=== PATIENT | female | born 1980 | race Caucasian/White ===

== ENCOUNTER 2017-05-31 02:16 | Inpatient (IN) | payer MEDICAID ==
[~2017-05-31] VITALS: Ht 160 cm; Wt 80.0 kg
[2017-05-31] MEDS ORDERED: LACTATED RINGER'S 1,000 ML IV SCH (03:11)
[2017-05-31] MEDS ORDERED: OXYTOCIN 30 UNITS/LR 500 ML IV PRN ×2 (03:30→11:00)
[2017-05-31] MEDS ORDERED: BUTORPHANOL 2 MG INJ IV PRN (03:30)
[2017-05-31] MEDS ORDERED: CARBOPROST 250 MCG INJ IM PRN ×2 (03:30→11:00)
[2017-05-31] MEDS ORDERED: LIDOCAINE 1% (MPF) 30 ML INJ INJ PRN (03:30)
[2017-05-31] MEDS ORDERED: OXYTOCIN 30 UNITS/LR 500 ML IV SCH ×2 (03:30)
[2017-05-31] MEDS ORDERED: IBUPROFEN 600 MG TAB PO PRN (03:30)
[2017-05-31] MEDS ORDERED: MISOPROSTOL 200 MCG TAB PR PRN ×2 (03:30→11:00)
[2017-05-31] MEDS ORDERED: METHYLERGONOVINE 0.2 MG INJ IM PRN ×2 (03:30→11:00)
[2017-05-31] MEDS ORDERED: LACTATED RINGER'S 1,000 ML IV PRN (03:30)
[2017-05-31 03:37] VITALS: Ht 160 cm; Wt 80.0 kg
[2017-05-31 03:38] VITALS: BP 123/77; PULSE 68
[2017-05-31 04:03] LABS: INR 0.89; PT RATIO 0.9
[2017-05-31 04:04] LABS: BASOPHILS % 0.2 % (0.0-2.0); EOSINOPHILS # 0.1 10^3/ul (0.0-0.5); EOSINOPHILS % 1.4 % (0.0-7.0); HEMATOCRIT 38.6 % (37.0-47.0); LYMPHOCYTES # 2.7 10^3/ul (0.8-2.9); LYMPHOCYTES % 30.1 % (15.0-51.0); MEAN CORPUSCULAR HGB CONC 33.7 g/dl (32.0-37.0); MEAN CORPUSCULAR VOLUME 95.1 fl (82.0-101.0); MEAN PLATELET VOLUME 10.4 fl (7.4-10.4); MONOCYTE # 0.6 10^3/ul (0.3-0.9); MONOCYTES % 6.2 % (0.0-11.0); NEUTROPHIL # 5.4 10^3/ul (1.6-7.5); NEUTROPHILS % 61.4 % (39.0-77.0); PARTIAL THROMBOPLASTIN TIME 27.9 Sec (25.0-35.0); PLATELET COUNT 218 10^3/UL (140-415); RED BLOOD COUNT 4.06 10^6/ul (4.20-5.40); RED CELL DISTRIBUTION WIDTH 14.6 % (11.5-14.5); WHITE BLOOD COUNT 8.9 10^3/ul (4.8-10.8)
--- NOTE | 2017-05-31 07:07 | HP ---
Date/Time of Note Date/Time of Note DATE: 05/31/17 TIME: 07:06 OB - History Hx of Present Free Text/Dictation oc of ucx : 3 Para: 2 Care: Good Care Ultrasounds: Normal mid trimester US Past Family/Social History * Past Medical, Surgical, Family and Obstetric Histories reviewed from chart. OB Admission Exam Vital Signs Vital Signs Vital Signs Date Time Temp Pulse Resp B/P Pulse Ox O2 Delivery O2 Flow Rate FiO2 05/31/17 03:38 98.1 68 123/77 Room Air Physical Exam HEENT: WNL Heart: Rhythm Normal Abdomen: WNL Extremities: Normal Cervical Dilatation: None Last 72 hours Lab Results CBC & BMP 05/31/17 03:30 OB Assessment/Plan Plan: Expectant Management Other plan: iup term labor admit for labor ART ALEMAN MD May 31, 2017 07:07
[2017-05-31] MEDS ORDERED: FENTAnyl 2MCG/ML-ROPIV 0.2% 100 ML ONE (07:37)
[2017-05-31] MEDS ORDERED: MINERAL OIL 30ML CUP TOP ONE (08:44)
[2017-05-31] MEDS ORDERED: MINERAL OIL LIGHT 10 ML VIAL TOP ONE (09:07)
--- NOTE | 2017-05-31 09:34 | LDN ---
Date/Time of Note Date/Time of Note DATE: 05/31/17 TIME: 09:32 Delivery Summary normal vaginal delivery Weeks of Gestation [id number] Placenta Delivered: Spontaneously Meconium: Light Episiotomy: No Perineal laceration: 1 Laceration repair: 0000ch gut SH Anesthesia type: Epidural Sponge & Needle done & correct: Yes All needle counts correct: Yes Any foreign bodies felt in the: No Problems: Infant Delivery Information Sex Infant Sex: female Apgars 1 Minute: 8 5 Minute: 9 Suctioning Nose & mouth suctioned at surjit: Yes Delee suction performed: Yes Umbilical Cord Umbilical cord with: 3 Vessels Cord presentations: no nuchal cord Cord Blood was obtained: Yes Mother & Baby Disposition Disposition Mom & Baby to Maternity; Good: Yes Mom transferred to: Other Baby to NICU: No () RAMYA BAKER MD May 31, 2017 09:34
[2017-05-31] MEDS ORDERED: NALOXONE (0.4 MG/ML) INJ IV PRN (10:30)
[2017-05-31] MEDS ORDERED: FENTAnyl 2MCG/ML-ROPIV 0.2% 100 ML BAG EPI SCH (10:30)
[2017-05-31] MEDS ORDERED: LANOLIN 7 GM TUBE TOP PRN (11:00)
[2017-05-31] MEDS ORDERED: ZOLPIDEM 5 MG TAB PO PRN (11:00)
[2017-05-31] MEDS ORDERED: OXYCODONE/ASPIRIN (4.88/325) TAB PO PRN (11:00)
[2017-05-31 11:30] VITALS: BP 117/75; PULSE 60; RESP 20
[2017-05-31 12:00] VITALS: BP 107/63; PULSE 68; RESP 18
[2017-05-31] MEDS: IBUPROFEN 600 MG TAB PO SCH ×3 (12:20→23:48)
[2017-05-31 16:00] VITALS: PULSE 55; RESP 16
[2017-05-31] MEDS: WITCH HAZEL/GLYCERIN PAD PR PRN (17:55)
[2017-05-31] MEDS: BENZOCAINE 20% 56 ML SPRAY TOP PRN (17:55)
[2017-05-31 20:00] VITALS: BP 98/58; PULSE 94; RESP 19
[2017-05-31] MEDS: SENNA/DOCUSATE NA (8.6MG/50MG) TAB PO SCH (21:01)
[2017-06-01 04:50] VITALS: BP 89/53; PULSE 70; RESP 18
[2017-06-01] MEDS: IBUPROFEN 600 MG TAB PO SCH ×3 (05:42→17:51)
[2017-06-01 08:00] VITALS: BP 83/51; PULSE 63; RESP 18
[2017-06-01 08:39] LABS: BASOPHILS % 0.2 % (0.0-2.0); EOSINOPHILS # 0.1 10^3/ul (0.0-0.5); EOSINOPHILS % 0.9 % (0.0-7.0); HEMATOCRIT 39.2 % (37.0-47.0); HEMOGLOBIN 12.5 g/dl (12.0-16.0); LYMPHOCYTES # 2.4 10^3/ul (0.8-2.9); LYMPHOCYTES % 20.9 % (15.0-51.0); MEAN CORPUSCULAR HEMOGLOBIN 30.9 pg (29.0-33.0); MEAN CORPUSCULAR HGB CONC 31.9 g/dl (32.0-37.0); MEAN PLATELET VOLUME 10.5 fl (7.4-10.4); MONOCYTE # 0.7 10^3/ul (0.3-0.9); MONOCYTES % 6.3 % (0.0-11.0); NEUTROPHILS % 71.3 % (39.0-77.0); PLATELET COUNT 203 10^3/UL (140-415); RED BLOOD COUNT 4.04 10^6/ul (4.20-5.40); RED CELL DISTRIBUTION WIDTH 15.1 % (11.5-14.5); WHITE BLOOD COUNT 11.2 10^3/ul (4.8-10.8)
[2017-06-01] MEDS: SENNA/DOCUSATE NA (8.6MG/50MG) TAB PO SCH ×2 (10:03→21:16)
[2017-06-01] MEDS: OXYCODONE/ASPIRIN (4.88/325) TAB PO PRN ×2 (10:18→19:49)
--- NOTE | 2017-06-01 13:34 | PN ---
Date/Time of Note Date/Time of Note DATE: 06/01/17 TIME: 13:32 OB Subjective Subjective Subjective no c/o OB Objective Objective Objective vss afebrile fundus firm lochia min calf neg for tenderness OB Assessment/Plan Other Assessment: stable post vaginal delivery #1 Other plan: d/s home in am RAMYA BAKER MD Jun 01, 2017 13:34
[2017-06-01 16:00] VITALS: BP 96/61; PULSE 62; RESP 18
[2017-06-01] MEDS: BENZOCAINE 20% 56 ML SPRAY TOP PRN (19:49)
[2017-06-01] MEDS: WITCH HAZEL/GLYCERIN PAD PR PRN (19:49)
[2017-06-01 20:00] VITALS: BP 106/59; PULSE 75; RESP 18
[2017-06-02] MEDS: IBUPROFEN 600 MG TAB PO SCH ×4 (00:06→17:54)
[2017-06-02 04:00] VITALS: BP 105/60; PULSE 62; RESP 18
[2017-06-02 08:00] VITALS: BP 98/63; PULSE 60; RESP 18
[2017-06-02] MEDS: SENNA/DOCUSATE NA (8.6MG/50MG) TAB PO SCH (08:58)
[2017-06-02] MEDS ORDERED: DIPHTH/TET/ACEL PERTUSS (ADULT) 0.5 ML VIAL IM* ONE (09:00)
--- NOTE | 2017-06-02 13:54 | PD.PPDC ---
NET COORDINATOR Discharge Instruction Diagnosis Final Diagnosis: s/p normal vaginal delivery Condition Patient Condition: Stable Diet Diet: Resume Regular Diet Activity/Restrictions Activity: May Shower Restrictions: No Lifting No Sexual Activity Nothing in the Vagina No [place] No Tampons, douche Follow-up Follow-up with Physician: Week/Weeks Return to clinic for REDUCER Instructions: Fever greater than 101 Chills Worsening abdominal pain Excessive Vaginal Bleeding More than 2 pads per hour Unable to tolerate diet OB Instructions: Breast Tenderness Depression Blurried Vision Headache RAMYA BAKER MD Jun 02, 2017 13:54
--- NOTE | 2017-06-02 13:57 | DS ---
Date/Time of Note Date/Time of Note DATE: 06/02/17 TIME: 13:56 Obstetrical Discharge Record Final Diagnosis Final Diagnosis: Term delivered Vaginal Delivery Obstetrical Delivery: Spontaneous, Laceration, Repaired Complications Augmentation: No Induction: No Rupture of Membranes: No Condition on Discharge Physical Assessment Last Vitals: vss afebrile Voiding: Yes Bowel Movement: Yes Breast: Soft, non-tender Fundus: Firm Calf Tenderness: No Patient Condition: Stable RAMYA BAKER MD Jun 02, 2017 13:57
[2017-06-02 16:21] VITALS: BP 96/70; PULSE 66; RESP 18
== END 2017-06-02 18:55 | disposition home or self-care (01) | DRG 775 ==
LOC: OBT 02:16 → L-D 02:17 → OBT 03:22 → L-D 03:24 → PP1 11:54
PROVIDERS: ADMIT Obstetrics & Gynecology; ATTEND Obstetrics & Gynecology
PROC: 10E0XZZ Delivery of Products of Conception, External Approach (ICD-10-PCS; principal; 2017-05-31)
PROC: 0HQ9XZZ Repair Perineum Skin, External Approach (ICD-10-PCS; 2017-05-31)
PROC: 3E0P3VZ Introduction of Hormone into Female Reproductive, Percutaneous Approach (ICD-10-PCS; 2017-05-31)
DX: O70.0 First degree perineal laceration during delivery (principal); Z37.0 Single live birth; Z3A.38 38 weeks gestation of pregnancy
CPT/HCPCS: 62319; 85025; 85610; 85730; 86592; 86900; 86901; 87340; 90715; 99464; G0463; J2210; J2590; J3010; J7120